=== PATIENT | female | born 1955 | race Caucasian/White ===

== ENCOUNTER 2020-03-16 07:41 | Outpatient (CLI) | payer MEDICARE ==
--- NOTE | 2020-03-17 08:15 | PET ---
PET Scan Dementia HISTORY: Mild cognitive impairment, so stated COMPARISON: None. CORRELATION: CT head dated 07/30/2018 Radiopharmaceutical: 7 mCi [id number] injected intravenously FINDINGS: No abnormal areas of tracer localization are seen. No hypometabolism is noted in the tempor oparietal regions to suggest Alzheimer's dementia. IMPRESSION: Normal exam.
== END 2020-03-16 07:42 | disposition home or self-care (01) ==
LOC: PET 07:41
PROVIDERS: ATTEND Psychiatry & Neurology Neurology
DX: G31.84 Mild cognitive impairment of uncertain or unknown etiology (principal)
CPT/HCPCS: 78803; A9552

== ENCOUNTER 2024-02-10 17:46 | Inpatient (IN) | payer MEDICARE ==
[2024-02-10] MEDS ORDERED: Acetaminophen 650 MG Suppository PR PRN (22:17)
[2024-02-10 22:20] VITALS: BMI 21.8
[2024-02-10 22:56] LABS: #Basophils 0.06 10x3/uL (0.0-0.2); %Basophils 1.2 % (0.0-1.0); %Eosinophils 2.4 % (0.0-10.0); %Lymphocytes 48.3 % (21.0-51.0); %Monocytes 5.5 % (0.0-10.0); %Neutrophils 42.2 % (42.0-75.0); Hemoglobin 9.1 g/dL (12.0-16.0); Mean Corpuscular HGB CONC 32.5 g/dL (32.0-36.0); Mean Corpuscular Hemoglobin 34.6 pg (27.0-31.0); Mean Corpuscular Volume 106.5 fL (78.0-98.0); Mean Platelet Volume 13.2 fL (7.4-10.4); Platelet Count 159 10x3/uL (130-400); RBC Distribution Width 15.1 % (11.5-14.5); Red Blood Cell (RBC) Count 2.63 mill/uL (4.20-5.40)
[2024-02-10 23:13] LABS: ALT (SGPT) 8 U/L (8-55); AST (SGOT) 12 U/L (5-34); Alkaline Phosphatase 62 U/L (40-110); Anion Gap 9 mmol/L (10-20); BUN (Urea Nitrogen) 9 mg/dL (9.8-20.1); Bilirubin, Total 0.4 mg/dL (0.2-1.2); Calc. Creatinine Clearance 65 mL/min (70-130); Carbon Dioxide 25 mmol/L (23-31); Chloride 111 mmol/L (98-107); Estimated GFR 88; Globulin 2.2 g/dL (2.4-3.5); Glucose 128 mg/dL (80-115); Magnesium 1.9 mg/dL (1.6-2.6); Potassium 3.6 mmol/L (3.5-5.1); Protein, Total 5.2 g/dL (5.8-8.1); Sodium 141 mmol/L (136-145)
[2024-02-11] MEDS: Acetaminophen 325 MG TAB PO SCH (01:37)
[2024-02-11] MEDS: Famotidine 20 MG TAB PO SCH (09:57)
[2024-02-11] MEDS: NS 0.9% w/ 20 MEQ KCL 1,000 ML/1,000 ML BAG IV SCH (09:58)
[2024-02-11] MEDS: Famotidine/PF 20 mg/2ml Vial SLOW IVP SCH (09:58)
[2024-02-11 10:24] LABS: Troponin I 0.013 ng/mL (< 0.028)
[2024-02-11 14:46] LABS: Troponin I 0.017 ng/mL (< 0.028)
[2024-02-11 16:55] VITALS: BMI 21.8
[2024-02-12 05:24] LABS: Hemoglobin 8.8 g/dL (12.0-16.0); Mean Corpuscular HGB CONC 32.6 g/dL (32.0-36.0); Mean Corpuscular Hemoglobin 34.2 pg (27.0-31.0); Mean Corpuscular Volume 105.1 fL (78.0-98.0); Platelet Count 134 10x3/uL (130-400); RBC Distribution Width 15.1 % (11.5-14.5); Red Blood Cell (RBC) Count 2.57 mill/uL (4.20-5.40)
[2024-02-12 05:27] LABS: Anion Gap 9 mmol/L (10-20); BUN (Urea Nitrogen) 10 mg/dL (9.8-20.1); Calc. Creatinine Clearance 68 mL/min (70-130); Calcium 7.9 mg/dL (7.8-10.44); Carbon Dioxide 23 mmol/L (23-31); Chloride 110 mmol/L (98-107); Estimated GFR 93; Glucose 80 mg/dL (80-115); Potassium 4.1 mmol/L (3.5-5.1); Sodium 138 mmol/L (136-145)
[2024-02-12 05:53] LABS: Anisocytosis SLIGHT = 6-15 cells HPF (0-5); Basophilic Stippling SLIGHT = 1-2 cells HPF (None Seen); Elliptocytes SLIGHT = 2-5 cells HPF (0-1); Eosinophils 7 % (0-10); Hypochromia SLIGHT = 6-15 cells HPF (0-5); Lymphocytes 56 % (21-51); Macrocytosis SLIGHT = 6-15 cells HPF (0-5); Monocytes 2 % (0-10); Neutrophil 32 % (42-75); Nucleated RBC (Manual Ct) 1 % (0); Platelet Adequacy Comment Platelets Normal; Polychromasia SLIGHT = 2-3 cells HPF (0-2); Schistocytes SLIGHT = 2-5 cells HPF (0-1)
[2024-02-12] MEDS: Folic Acid 1 MG TAB PO SCH (09:40)
[2024-02-12] MEDS: Megestrol Acetate 800 MG/20 ML UDCUP PO SCH (09:40)
[2024-02-12] MEDS: Sodium Chloride 0.9% 1,000 ML IV SCH (09:40)
[2024-02-12] MEDS ORDERED: Meclizine HCl 25 MG TAB PO PRN (10:16)
[2024-02-12] MEDS: Meclizine HCl 25 MG TAB PO SCH (11:17)
[2024-02-13 05:18] LABS: Hematocrit 26.3 % (36.0-47.0); Hemoglobin 8.6 g/dL (12.0-16.0); Mean Corpuscular HGB CONC 32.7 g/dL (32.0-36.0); Mean Corpuscular Hemoglobin 33.7 pg (27.0-31.0); Mean Corpuscular Volume 103.1 fL (78.0-98.0); Mean Platelet Volume 13.2 fL (7.4-10.4); Platelet Count 145 10x3/uL (130-400); Red Blood Cell (RBC) Count 2.55 mill/uL (4.20-5.40)
[2024-02-13 05:19] LABS: Anion Gap 9 mmol/L (10-20); BUN (Urea Nitrogen) 8 mg/dL (9.8-20.1); Calc. Creatinine Clearance 71 mL/min (70-130); Calcium 7.7 mg/dL (7.8-10.44); Carbon Dioxide 22 mmol/L (23-31); Chloride 112 mmol/L (98-107); Estimated GFR 94; Glucose 95 mg/dL (80-115); Potassium 3.9 mmol/L (3.5-5.1); Sodium 139 mmol/L (136-145)
[2024-02-13 05:47] LABS: Anisocytosis MODERATE=16-30 cells HPF (0-5); Band 1 % (5-11); Eosinophils 2 % (0-10); Large Platelets 10.5 % (0-5); Lymphocytes 50 % (21-51); Macrocytosis SLIGHT = 6-15 cells HPF (0-5); Monocytes 3 % (0-10); Neutrophil 39 % (42-75); Platelet Adequacy Comment Platelets Normal; Polychromasia MODERATE = 3-4 cells HPF (0-2); Smudge Cells 7.6 %
[2024-02-13] MEDS ORDERED: VITAMIN D2 PO SCH (09:00)
[2024-02-13] MEDS ORDERED: Non-Formulary Item 1 EACH (Ergocalciferol (Vitamin D2) [Vitamin D2] 50 MCG Capsule) PO SCH (09:00)
[2024-02-13] MEDS ORDERED: Alendronate Sodium 70 mg Tablet PO SCH (09:00)
[2024-02-13] MEDS: busPIRone HCl 10 MG TAB PO SCH (09:47)
[2024-02-13] MEDS: Memantine 5 MG TAB PO SCH (09:47)
[2024-02-13] MEDS: Scopolamine 1 mg/72 hour Patch TD SCH (09:48)
[2024-02-13] MEDS: Folic Acid 1 MG TAB PO SCH (09:48)
[2024-02-13] MEDS: Sodium Chloride 0.9% 1,000 ML IV SCH (11:19)
[2024-02-13 12:24] VITALS: TEMP 98.2
[2024-02-13] MEDS: Meclizine HCl 25 MG TAB PO SCH (13:11)
[2024-02-13 14:46] VITALS: BP 134/63
== END 2024-02-13 16:02 | disposition home or self-care (01) | DRG 641 ==
LOC: OBS 21:48 → OBSVTOIN 02-12 09:38
PROVIDERS: ADMIT Hospitalist; ATTEND Family Medicine
DX: E86.9 Volume depletion, unspecified (principal); E44.0 Moderate protein-calorie malnutrition; J39.2 Other diseases of pharynx; F03.A0 Unspecified dementia, mild, without behavioral disturbance, psychotic disturbance, mood disturbance, and anxiety; R00.1 Bradycardia, unspecified; K21.9 Gastro-esophageal reflux disease without esophagitis; Z91.09 Other allergy status, other than to drugs and biological substances; Z88.8 Allergy status to other drugs, medicaments and biological substances; Z88.5 Allergy status to narcotic agent; Z88.2 Allergy status to sulfonamides; Z91.030 Bee allergy status; Z88.0 Allergy status to penicillin; Z90.3 Acquired absence of stomach [part of]; Z68.21 Body mass index [BMI] 21.0-21.9, adult
CPT/HCPCS: 36415; 36416; 70450; 70551; 71045; 80048; 80053; 81001; 82533; 82805; 83605; 83735; 84443; 84484; 85025; 93005; 93306; 93880; 96360; G0378; J3480; J3490